=== PATIENT | female | born 1980 | race Caucasian/White ===

== ENCOUNTER 2016-08-12 14:08 | Emergency (ER) | payer MEDICAID ==
[~2016-08-12] VITALS: Ht 170.2 cm; Wt 44.0 kg
[~2016-08-12 14:08] MED LIST: CIPROFLOXACIN500 M2 ORAL; FERROUS SULFAT325 MG ORAL; IBUPROFEN600 MG ORAL; IRON18 M1 PO; ZOFRAN4 MG ORAL
[2016-08-12 14:38] VITALS: BP 109/64
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
[2016-08-12] MEDS ORDERED: IBUPROFEN400 MG ORAL (16:04)
[2016-08-12] MEDS ORDERED: CYCLOBENZAPRINE10 MG ORAL (16:04)
[2016-08-12 16:26] VITALS: BP_SYST 109; BP_SYST 112; BP_DIAS 62; BP_DIAS 64
--- NOTE | 2016-08-13 10:08 | Diagnostic Imaging Report ---
Indications: Right shoulder pain Technique: 3 views of the right shoulder Findings: Comparison: None No fracture, dislocation, lytic destruction, periosteal reaction, surrounding soft tissue swelling, or other acute change is demonstrated. No deformity, alignment abnormality, arthritic change, soft tissue calcification, or other chronic change is demonstrated. IMPRESSION: Negative right shoulder series.
== END 2016-08-12 16:28 | disposition home or self-care (01) ==
LOC: EMR 14:47
DX: M54.10 Radiculopathy, site unspecified (principal); M62.838 Other muscle spasm
CPT/HCPCS: 99284